=== PATIENT | female | born 1935 | race Caucasian/White ===

== ENCOUNTER → 2022-01-30 | Outpatient (CLI) | payer OTHER ==
[~2022-01-30] MED LIST: ATEN25 PO; CLON.1 PO; FISH1000 PO; FLUO20 PO; HYDCHL25 PO; LEVSOD75 PO; METF500 PO; PRAV20 PO; PRAV40 PO; TOCO400 PO
== END | disposition home or self-care (01) ==
LOC: LAB 15:08 → LAB SHORT 15:08
DX: R30.9 Painful micturition, unspecified (principal)
CPT/HCPCS: 87077; 87086; 87186